=== PATIENT | female | born 1980 | race Caucasian/White ===

== ENCOUNTER → 2018-08-01 | Outpatient (CLI) | payer OTHER | END | disposition home or self-care (01) | LOC: CFH 15:33 | PROVIDERS: ATTEND Nurse Practitioner Family | DX: M51.27 Other intervertebral disc displacement, lumbosacral region (principal) | CPT/HCPCS: 72148 ==

== ENCOUNTER 2018-09-27 21:53 | Emergency (ER) | payer OTHER ==
[~2018-09-27] VITALS: Ht 172.7 cm; Wt 60.5 kg
[~2018-09-27 21:53] MED LIST: SERT50TA PO
[2018-09-27] MEDS ORDERED: SODIUM CHLORIDE 0.9% 1,000 ML IV ONE (22:05)
--- NOTE | 2018-09-27 22:20 | NUR ---
PT PLACED IN HOSPITAL GOWN. PT IN RESTRAINS SHE IS COMBATIVE AND CONFUSED. PT EASY TO AROUSE, IS YELLING OUT IN HALLWAY. EKG DONE, PT ON CARDIAC AND VITALS MONITOR. REPORT TO CRISTI HOGAN
[2018-09-27] MEDS ORDERED: MIDAZOLAM 1 MG/ML, 2ML ONE (22:23)
[2018-09-27] MEDS ORDERED: SUBOXONE (22:24)
[2018-09-27] MEDS ORDERED: PROPRANOLOL (22:24)
[2018-09-27] MEDS ORDERED: OXYCODONE (22:24)
[2018-09-27] MEDS ORDERED: AMBIEN (22:24)
[2018-09-27] MEDS ORDERED: LORazepam 2 MG/ML, 1ML ONE (22:24)
[2018-09-27] MEDS ORDERED: SEROQUEL (22:24)
[2018-09-27 22:25] LABS: BASOPHILS # (AUTO) 0.03 x10^3/uL (0-0.1); BASOPHILS % (AUTO) 1 % (0-1); EOSINOPHILS # (AUTO) 0.07 x10^3/uL (0-0.4); EOSINOPHILS % (AUTO) 2 % (1-7); LYMPHOCYTES # (AUTO) 1.58 x10^3/uL (1-3.4); LYMPHOCYTES % (AUTO) 36 % (22-44); MD NO; MEAN CORPUSCULAR HEMOGLOBIN 32.3 pg (27.0-34.8); MEAN CORPUSCULAR HGB CONC 34.3 g/dL (32.4-35.8); MEAN PLATELET VOLUME 8.3 fL (7.4-10.4); MONOCYTES # (AUTO) 0.27 x10^3/uL (0.2-0.8); MONOCYTES % (AUTO) 6 % (2-9); NEUTROPHILS % (AUTO) 56 % (42-75); PLATELET COUNT 342 x10^3/uL (130-400); RED BLOOD COUNT 4.49 x10^6/uL (3.82-5.3); RED CELL DISTRIBUTION WIDTH 13.6 % (9.6-15.2)
[2018-09-27] MEDS ORDERED: MIDAZOLAM 1 MG/ML, 2ML IVPush ONE (22:30)
[2018-09-27] MEDS ORDERED: LORazepam 2 MG/ML, 1ML IVPush ONE (22:30)
[2018-09-27 22:38] LABS: ALANINE AMINOTRANSFERASE 29 U/L (12-78); ALBUMIN 4.5 g/dL (3.4-5.0); ANION GAP 10 mmol/L (5-15); CALCIUM 8.2 mg/dL (8.5-10.1); CHLORIDE 112 mmol/L (98-107); CREATININE 1.03 mg/dL (0.55-1.02); SALICYLATE LEVEL < 1.7 mg/dL (2.8-20.0)
[2018-09-27 22:40] LABS: ALKALINE PHOSPHATASE 78 U/L (45-117); BILIRUBIN,TOTAL 0.1 mg/dL (0.2-1.0); TOTAL PROTEIN 7.6 g/dL (6.4-8.2)
[2018-09-27 22:41] LABS: ACETAMINOPHEN < 2 mcg/mL (10-30)
--- NOTE | 2018-09-27 22:51 | NUR ---
BIB [facility] - PT FOUND RUNNING AROUND [facility]. NEIGHBOR CALLED [employer], PT COMBATIVE FOR [employer], [employer] CALLED EMS. EMS STATED POSSIBLY PT TOOK AMBIEN, OXYCODONE, AND SUBOXONE. 3 EMPTY WEED PACKETS FOUND ON SCENE AND MULTIPLE EMPTY ETOH BOTTLES FOUND ON SCENE. PT GIVEN NS AND 2MG VERSED IM BY EMS
--- NOTE | 2018-09-27 23:14 | NUR ---
PT TO CT, ACCOMPANIED BY SECURITY
--- NOTE | 2018-09-27 23:15 | NUR ---
PT NOT TAKEN TO CT, THRASHING ON STRETCHER
--- NOTE | 2018-09-27 23:40 | NUR ---
PT PLACED ON END TIDAL
--- NOTE | 2018-09-28 00:04 | NUR ---
PT THRASING ABOUT, REATTACHED TO PULSE OX, UNABLE TO DUE CT OR CATH FOR URINE YET
--- NOTE | 2018-09-28 00:42 | NUR ---
PT RESTING WITH EYES CLOSED, NO DISTRESS NOTED, PT TO CT WITH SECURITY
--- NOTE | 2018-09-28 00:45 | NUR ---
PT BACK FROM CT, UNABLE TO DO PT WAS THRASING IN CT
[2018-09-28] MEDS ORDERED: SODIUM CHLORIDE 0.9% 1,000ML IVBOLUS ONE (01:00)
--- NOTE | 2018-09-28 01:48 | NUR ---
TASK RN: PT THRASHING ABOUT BED. RN TO BEDSIDE. PT REDIRECTABLE, FOLLOWING DIRECTIONS. 2 RESTRAINTS REMOVED. RESTRAINTS REMAIN ON R WRIST AND L ANKLE. +CMS. PT PROVIDED BLANKET AND IS NOW RESTING CALMLY. SPEECH SLURRED. PT MAKING REQUESTS FOR WATER, ABLE TO DRINK THROUGH STRAW WO EVIDENCE OF ASPIRATION. O2 REMOVED, SPO2 >90% ON RA. RR WNL. PWD. ERP STATES THAT PT MENTATION APPEARS TO BE IMPROVING, NO FURTHER BENZOS ORDERED. IVF CONTINUES TO INFUSE. PT MADE AWARE OF NEED FOR CT,"I'VE ALREADY DONE THAT". PT MADE AWARE THAT CT HAS NOT BEEN COMPLETED D/T PT BEHAVIOR. INCOMPREHENSIBLE MUMMBLING FROM PT RESPONSE. AWAITING IMPROVEMENT IN MENTATION FOR CT, PER ERP.
--- NOTE | 2018-09-28 02:30 | NUR ---
PT IV LEAKING, TIGHTENED PIG TAIL TO HUB, APPEARS TO BE GOOD NOW, NO LEAKING
--- NOTE | 2018-09-28 03:48 | NUR ---
PER MD, RESTRAINTS TO BE REMOVED AND PT ROAD TESTED
--- NOTE | 2018-09-28 04:25 | NUR ---
PT RESTING QUIETLY WITH EYES CLOSED, NO DISTRESS NOTED
--- NOTE | 2018-09-28 05:10 | NUR ---
PT REFUSING TO AMBULATE AT THIS TIME
[2018-09-28 05:30] VITALS: BP 110/69
== END 2018-09-28 06:07 | disposition home or self-care (01) ==
LOC: ED 09-28 05:50
DX: F10.121 Alcohol abuse with intoxication delirium (principal); R40.4 Transient alteration of awareness; F12.10 Cannabis abuse, uncomplicated; I95.9 Hypotension, unspecified
CPT/HCPCS: 36415; 80053; 80307; 80329; 85025; 93005; 96361; 96374; 99291; J2250; J7030; G0480